=== PATIENT | male | born 1970 | race Caucasian/White ===

== ENCOUNTER 2021-05-01 20:04 | Inpatient (IN) | payer OTHER ==
[~2021-05-01] VITALS: Ht 195.6 cm; Wt 110.2 kg
[2021-05-01 20:12] VITALS: BP 140/118
[2021-05-01 20:59] LABS: ABSOLUTE NEUTROPHILS 6.5 thou/uL (1.4-8.2); BASOPHILS 0.4 % (0.0-2.0); EOSINOPHILS 0.8 % (0.0-3.0); HEMATOCRIT 41.7 % (42.0-52.0); HEMOGLOBIN 14.2 gm/dL (14.0-18.0); LYMPHOCYTES 23.1 % (24.0-44.0); MCH 28.6 pg (26.0-34.0); MCV 84.2 fL (80.0-100.0); MONOCYTES 10.1 % (1.0-8.0); PLATELET COUNT 243 thou/uL (150-400); POLYS 65.6 % (36.0-66.0); RBC 4.96 mil/uL (4.50-6.00); RDW 14.1 % (10.5-14.5); WBC 9.9 thou/uL (4.0-11.0)
[2021-05-01 21:03] LABS: CALCIUM 8.9 mg/dL (8.5-10.1); CREATININE 1.3 mg/dL (0.7-1.3); POTASSIUM 3.6 mmol/L (3.5-5.1)
[2021-05-01 21:13] LABS: ALBUMIN 4.1 g/dL (3.4-5.0); TOTAL BILIRUBIN 0.3 mg/dL (0.2-1.0); TOTAL PROTEIN 7.7 g/dL (6.4-8.2)
[2021-05-01 21:37] LABS: APTT 24.2 Seconds (24.5-32.8); PROTIME 10.9 Seconds (10.5-12.1)
[2021-05-01 23:03] VITALS: BP 153/87
[2021-05-01 23:53] VITALS: BP 143/82
[2021-05-01 23:54] VITALS: BP 153/87
[2021-05-02 04:00] VITALS: BP 100/70
[2021-05-02 06:37] LABS: CHOLESTEROL 192 mg/dL (<200); HDL CHOLESTEROL 30 mg/dL (>40); LDL CHOLESTEROL 119 mg/dL (<100); SERUM ASSESSMENT Clear; TC:HDL 6.4 Ratio (Not establshd); TRIGLYCERIDE 219 mg/dL (<150); VLDL 44 mg/dL (<40)
[2021-05-02 08:00] VITALS: BP 142/90
--- NOTE | 2021-05-02 08:09 | EKG ---
[address] [address] ELECTROCARDIOGRAM REPORT Name: SENTHIL DOCKERYLE KING Room #: 218-P ADM IN ..#: [id number] Admission: 05/01/21 Attend Phys: Tai Felipe MD Discharge: Date of : 68 Report #: [id number] [facility] ED Test Date: 2021-05-01 Test Time: 20:39:02 Pat Name: SANDER DOCKERY Department: Room: 218 Gender: M Planner Chief: MAU : 1970 Requested By: Dennis Childers Order Number: [id number] MD: Hayden Barron Measurements Intervals [place] Rate: 151 P: CA: QRS: 36 QRSD: 79 T: 30 QT: 304 QTc: 482 Interpretive Statements Atrial fibrillation Minimal ST depression, inferior leads Borderline prolonged QT interval No previous ECG available for comparison Electronically Signed On 05-02-2021 8:08:57 CDT by Hayden Barron [email or web address] <ELECTRONICALLY SIGNED> By: Hayden Barron MD, FACC 05/02/21 [id number] Hayden Barron MD, FACC /EPI
--- NOTE | 2021-05-02 08:13 | NUR ---
PATIENT ARRIVED FROM ER VIA CART ACCOMPANIED BY CAPSULE INSPECTOR. ORIENTED TO BED CONTROLS, TV CONTROLS, AND SERGO LISTING. EXPLAINED THE MENUE AND ORDING MEALS. PHONE IS WITHIN REACH NEXT TO BED. HOOKED UP TO HEART MONITOR. ASSESSMENT CHARTED. AFIB WITH RATE IN THE 70S REMAINS ON CARDIZEM GTT AT 5MG/HR. WOUND DOCUMENTATION ON CHART WITH PHOTO. WILL BEGIN POC.
--- NOTE | 2021-05-02 10:52 | NUR ---
PT OFF UNIT TO CV LAB.
[2021-05-02] MEDS ORDERED: METOPROLOL SUCC50 MG PO (11:26)
[2021-05-02] MEDS ORDERED: XARELTO20 MG PO (11:26)
--- NOTE | 2021-05-02 11:48 | 2DMMODE ---
[facility] [place] [address] 2 D/M-MODE ECHOCARDIOGRAM Name: SANDER DOCKERY Room #: 218-P ADM IN M.R.#: [id number] Admission: 05/01/21 Attend Phys: Tai Felipe MD Discharge: Date of : 68 Report #: [id number] THIS REPORT FOR: cc: [facility] - Clinic physician unknown [facility] - Clinic physician unknown Hayden Barron MD [facility] ~ APPROVED REPORT Study performed: 05/02/2021 11:10:25 EXAM: Comprehensive 2D, Doppler, and color-flow Echocardiogram Patient Location: In-Patient/Scanned in CV holding Room #: 218 Status: routine BSA: 2.43 HR: 67 bpm BP: 142/90 mmHg Rhythm: NSR Other Information Study Quality: Good Indications Syncope, episode of Afib. (NICKOLAS canceled, patient in NSR). 2D Dimensions IVSd: 10.10 (7-11mm) LVOT Diam: 22.63 (18-24mm) LVDd: 53.72 mm PWd: 9.39 (7-11mm) Ascending Ao: 35.09 (22-36mm) LVDs: 33.76 (25-40mm) Left Atrium: 33.25 (27-40mm) Aortic Root: 35.01 mm Volumes Left Atrial Volume (Systole) Single Plane 4CH: 45.35 mL Single Plane 2CH: 46.81 mL LA ESV Index: 22.00 mL/m2 Aortic Valve AoV Peak James.: 1.10 m/s AO Peak Gr.: 4.83 mmHg LVOT Max P.22 mmHg LVOT Max V: 0.90 m/s LIT Vmax: 3.28 cm2 [facility] [address] [place] [address] 2 D/M-MODE ECHOCARDIOGRAM Name: TRAVONMARYSOLBETSEYSANDERBRENNA MALIK Room #: [address] [place] [address] IN ..#: [id number] Admission: 05/01/21 Attend Phys: Tai Felipe MD Discharge: Date of : 68 Report #: [id number] Mitral Valve E/A Ratio: 1.2 MV Decel. Time: 216.31 ms MV E Max James.: 0.45 m/s MV A James.: 0.38 m/s MV PHT: 62.73 ms IVRT: 76.12 ms Pulmonary Valve PV Peak James.: 0.85 m/s PV Peak Gr.: 2.90 mmHg Pulmonary Vein P Vein S: 0.43 m/s P Vein A: 0.24 m/s P Vein D: 0.37 m/s P Vein A Dur.: 101.5 msec P Vein S/D Ratio: 1.16 Tricuspid Valve TR Peak James.: 2.33 m/s RAP Estimate: 5.00 mmHg TR Peak Gr.: 22.00 mmHg PA Pressure: 27.00 mmHg Left Ventricle The left ventricle is normal size. There is normal LV segmental wall motion. There is normal left ventricular wall thickness. Left ventricular systolic function is normal. LVEF is 60%. The left ventricular diastolic function is normal. Right Ventricle The right ventricle is normal size. The right ventricular systolic function is normal. Atria The left atrium size is normal. The right atrium size is normal. Aortic Valve The aortic valve is normal in structure. No aortic regurgitation is present. There is no aortic valvular stenosis. Mitral Valve The mitral valve is normal in structure. Trace mitral regurgitation. No evidence of mitral valve stenosis. Tricuspid Valve The tricuspid valve is normal in structure. Trace tricuspid [facility] [address] [place] [address] 2 D/M-MODE ECHOCARDIOGRAM Name: SANDER DOCKERY Room #: 218-[facility] IN ..#: [id number] Admission: 05/01/21 Attend Phys: Tai Felipe MD Discharge: Date of : 68 Report #: [id number] regurgitation. Estimated PAP is 27mmHg. Pulmonic Valve The pulmonary valve is normal in structure. There is no pulmonic valvular regurgitation. Great Vessels The aortic root is normal in size. The ascending aorta is normal in size. IVC is normal in size and collapses >50% with inspiration. Pericardium There is no pericardial effusion. <Conclusion> Study performed in sinus rhythm normal left ventricle size/wall thickness Ejection fraction 60% Normal right ventricular size/function Normal atrial size Normal aortic/mitral valve structure and function Trace tricuspid valve insufficiency Pulmonary systolic pressure estimated 27 mmHg No pericardial effusion Normal aortic root size <ELECTRONICALLY SIGNED> By: Hayden Barron MD, FACC 05/02/21 [id number] [id number] Hayden Barron MD, FACC /INF
--- NOTE | 2021-05-02 13:04 | NUR ---
PT RETURN FROM CV LAB. PT CARDIOVERTED TO NSR WITHOUT ANY INTERVENTION. PLAN FOR DISCHARGE LATER THIS AFTERNOON.
--- NOTE | 2021-05-02 14:15 | NUR ---
DISCONTINUE IV AND TELE. PT UNDERSTANDS ALL FOLLOW UP ORDERS. WILL DISCHARGE TO HOME.
[2021-05-02 14:17] VITALS: BP 142/90
[2021-05-03 00:06] LABS: GLYCOHEMOGLOBIN (HGB A1C) 5.9 % (4.8-5.6)
== END 2021-05-02 14:40 | disposition home or self-care (01) | DRG 310 ==
LOC: ER 20:04 → EROBS 22:01 → 2N 22:01
PROVIDERS: Emergency Medicine; Nurse Practitioner Family; ADMIT Hospitalist; ATTEND Hospitalist
PROC: 0HQ1XZZ Repair Face Skin, External Approach (ICD-10-PCS; principal; 2021-05-01)
DX: I48.91 Unspecified atrial fibrillation (principal); Z20.822 Contact with and (suspected) exposure to COVID-19; I10 Essential (primary) hypertension; F17.210 Nicotine dependence, cigarettes, uncomplicated; K21.9 Gastro-esophageal reflux disease without esophagitis; Z90.49 Acquired absence of other specified parts of digestive tract; Z79.01 Long term (current) use of anticoagulants; S01.112A Laceration without foreign body of left eyelid and periocular area, initial encounter; W18.39XA Other fall on same level, initial encounter; Y93.89 Activity, other specified; Y92.89 Other specified places as the place of occurrence of the external cause; Y99.8 Other external cause status
CPT/HCPCS: 10081

== ENCOUNTER → 2021-05-21 | Outpatient (CLI) | payer OTHER ==
[~2021-05-21] MED LIST: METOPROLOL SUCC50 MG PO; XARELTO20 MG PO
== END ==
LOC: SJCVCIMAG 07:51
PROVIDERS: ATTEND Internal Medicine Cardiovascular Disease
DX: R00.0 Tachycardia, unspecified (principal); I48.0 Paroxysmal atrial fibrillation; R00.2 Palpitations; R55 Syncope and collapse; R06.00 Dyspnea, unspecified; R53.83 Other fatigue; Z79.899 Other long term (current) drug therapy